=== PATIENT | male | born 1955 | race Caucasian/White ===

== ENCOUNTER 2020-08-03 06:33 | Day surgery (SDC) | payer OTHER ==
[~2020-08-03] VITALS: Ht 180.3 cm; Wt 88.5 kg
[~2020-08-03 06:33] MED LIST: CEPHALEXIN500 MG PO; LOSARTAN POTASS50 MG PO; NAPROXEN500 MG PO
[2020-08-03 08:04] VITALS: BP 137/83
--- NOTE | 2020-08-03 08:45 | EKG ---
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
--- NOTE | 2020-08-07 06:14 | O ---
[facility] [place] [address] [place] [address] OPERATIVE REPORT Name: AIDEN SILVA Room #: DEP [facility]#: [id number] Admission: 08/03/20 Attend Phys: Pedro Beard MD Discharge: 08/03/20 Date of : 53 Report #: [id number] THIS REPORT FOR: cc: Rocky Wayne MD, Richard K. MD White, William L. MD ~ DOC #: [id number] cc: Rocky Wayne MD, Melvin Beard MD DATE OF SERVICE: 08/03/2020 PREOPERATIVE DIAGNOSIS: Basal cell carcinoma, left lower lid and cheek, status post Mohs resection. POSTOPERATIVE DIAGNOSIS: Basal cell carcinoma, left lower lid and cheek, status post Mohs resection. PROCEDURE: Vascularized tarsoconjunctival flap from left upper lid to the left lower lid with full thickness skin graft from right upper lid to left lower lid, myocutaneous advancement flap repair of defect of left lower lid and cheek. SURGEON: Pedro Beard MD GUEST SERVICES COORDINATOR: None. ANESTHESIA: General. COMPLICATIONS: None. INDICATIONS FOR SURGERY: This pleasant 64-year-old gentleman underwent Mohs resection of a basal cell carcinoma, 4 days ago. The size of the defect after his resection was larger than what it had been initially anticipated, so the original reconstruction was canceled and I was asked to see him to correct that defect. The defect includes the central half of his left lower lid in its entirety, but then extends across the anterior lamellar and the lamella in an angular fashion including the skin of the cheek and the lid past the lateral canthus towards the ear. He presents today for correction of that defect with three different reconstructive techniques to be used. A Martins flap will be used to correct the central defect in the left lower lid followed by a full thickness skin graft from the opposite side upper lid. The anterior lamellar defect that extends back out further on to the cheek is to be corrected with a myocutaneous advancement flap. Informed consent was obtained to include but not limited to the potential risk for loss of vision, bleeding, infection, failure to improve the problem, and the potential need for further surgery or treatment. [address] [address] OPERATIVE REPORT Name: AIDEN SILVA Room #: DEP [facility].#: [id number] Admission: 08/03/20 Attend Phys: Pedro Beard MD Discharge: 08/03/20 Date of : 53 Report #: [id number] DESCRIPTION OF PROCEDURE: The patient was taken to the operating room where general anesthesia was administered. The left lower lid, the left cheek the left lateral canthus, the left upper lid and the right upper lid were then anesthetized with Xylocaine with epinephrine mixed with Marcaine and Wydase. The patient was subsequently prepped and draped in the usual sterile fashion. An incision was then made across the stump of the medial canthus through the lower lid retractors to the premalar space. An additional vertical incision was made laterally to allow fresh perpendicular tarsal plate margins. These 2 incisions were then connected horizontally. This specimen was marked with a Vicryl suture medially and sent for permanent section analysis. The left upper lid was then everted and an incision made, 3.5 mm away from the mature lashes across the width of the lid. Vertical incisions were then made to allow a vascularized tarsoconjunctival flap to be developed. Thin section techniques were used to bring just the flap with the conjunctiva. Ralph's muscle was from the underlying conjunctiva and left with the lid. This vascularized tarsoconjunctival flap was then squared and secured to its bed in the lower lid with 6-0 Vicryl sutures. A fine tip skin marking pen was then utilized to outline an upper lid crease incision on the right side. A Graefe forceps was then used to quantitate the amount of redundant upper lid skin could be excised and still allow his eyes closed. Incisions were then made with a Jodi scissor and a full thickness skin graft harvested then with high temp cautery utilizing thin section techniques. The donor bed was then sculpted with monopolar cautery and closed with interrupted 6-0 chromic sutures to recreate the lid crease followed by skin closure with 6-0 plain gut sutures. The full thickness skin graft was then defatted and secured into its bed in the left lower lid with cardinal bites of 7-0 Vicryl suture followed by final skin closure of 6-0 plain gut sutures. A subciliary incision was then made laterally out past the lateral canthus up into the infratemporal fossa and to correct the defect still left in the lateral most left lower lid extending onto the cheek. The area was widely undermined to allow myocutaneous flap to be advanced. It was then secured to its new bed nasally with buried Vicryl sutures deep and then 7-0 Vicryl sutures on the eyelid margin followed by a final skin closure of 6-0 plain gut suture. The defect having been repaired, the wounds were then cleaned and dressed with erythromycin ophthalmic ointment. Multiple layers of Telfa were then placed over the full thickness skin graft to keep it flat as a bolster. Two eye pads were then placed on the left eye followed by silk tape and this was held in place with Mastisol. The right upper lid had a Telfa pad placed on it in a loose fashion. The patient was subsequently transported to the recovery area, having tolerated the procedures well with no anesthetic or operative [address] [address] OPERATIVE REPORT Name: AIDEN SILVA Room #: DEP [facility].#: [id number] Admission: 08/03/20 Attend Phys: Pedro Beard MD Discharge: 08/03/20 Date of : 53 Report #: [id number] complications being noted. Pedro Beard MD [facility] <ELECTRONICALLY SIGNED> By: Pedro Beard MD 08/07/20 0614 0916 1136 Pedro Beard MD /nt
--- NOTE | 2020-08-07 17:06 | PATH ---
[facility] [place] [address] PATHOLOGY RPT PROCEDURE Name: ANANTH MAHER Room #: DEP [facility] M.R.#: [id number] Admission: 08/03/20 Date of : 53 Discharge: 08/03/20 Report #: [id number] Path Case #: [id number] [facility] Accession Number: [id number] . 01 Material submitted: . eyelid - LEFT LOWER LID. Modifiers: left, lower . 01 Clinical history: . FLAP RECONSTRUCTION BCCA SUTURE MCCOLLUM MEDIAL LEFT LOWER LID DS 08/03 BASAL CELL CARCINOMA SKIN/LEFT LOWER EYELID . 02 Diagnosis: Skin, left lower lid, excision: - Marked acute inflammation associated with abscess formation within dermis. - No residual malignancy present, history of basal cell carcinoma provided. - Overlying skin with marked acute inflammation and reactive changes. ([facility]; 08/07/2020) QMS 08/07/2020 1339 Local . 02 Electronically signed: . Promise Nunez MD, Pathologist NPI- [id number] . 01 Gross description: . Received in formalin labeled "Ananth Maher, left lower lid suture mccollum medial left lower lid" is an oriented ellipse of skin measuring 1.8 x 0.6 x 0.5 cm. There is a suture designating medial left lower lid which is in the 12 o'clock position. The skin surface displays a cano-brown possible lesion measuring 0.9 x 0.3 cm and is located: 0.5 cm from 12:00 0.2 cm from 3:00 0.1 cm from 6:00 0.3 cm from 9:00. The margins are inked as follows: 12:00 to 3:00-yellow, 3:00 to 6:00-blue, 6:00 to 12:00-black. The specimen is sectioned into 6 pieces. The specimen is submitted entirely in A1-A2, with the tips in the last cassette. ([facility]; 08/04/2020) GZA/GZA 08/04/2020 1103 Local . 02 Pathologist provided ICD-10: L98.9, H00.035 . 02 CPT . 910298 [place] [address] PATHOLOGY RPT PROCEDURE Name: ANANTH MAHER Room #: DEP [facility] Mery.[facility]#: [id number] Admission: 08/03/20 Date of : 53 Discharge: 08/03/20 Report #: [id number] Path Case #: [id number] Specimen Comment: A courtesy copy of this report has been sent to [phone], [phone]- Specimen Comment: [phone] Specimen Comment: Report sent to / DR MACHUCA Performed at: [address], [place] [id number] MD Clive Cordova MD Phone: [phone] Performed at: [address] [id number] MD Promise Nunez MD Phone: [phone]
== END 2020-08-03 11:00 | disposition home or self-care (01) ==
LOC: OR 06:33 → TBA 06:33 → OR 11:00
PROVIDERS: ATTEND Ophthalmology
DX: H02.89 Other specified disorders of eyelid (principal); H00.035 Abscess of left lower eyelid; I10 Essential (primary) hypertension; Z85.828 Personal history of other malignant neoplasm of skin; Z98.890 Other specified postprocedural states; Z79.899 Other long term (current) drug therapy; Z90.49 Acquired absence of other specified parts of digestive tract
CPT/HCPCS: 50010; 50101; 50386; 50398; 51636; 56528; 56531; 62110; 62850; 64037; 70005

== ENCOUNTER 2020-09-14 06:17 | Day surgery (SDC) | payer OTHER ==
[~2020-09-14] VITALS: Ht 177.8 cm; Wt 86.2 kg
--- NOTE | ~2020-09-14 | O ---
[facility] [place] [address] OPERATIVE REPORT Name: AIDEN SILVA Room #: 150-2 [facility].#: [id number] Admission: 09/14/20 Attend Phys: Pedro Beard MD Discharge: Date of : 53 Report #: [id number] THIS REPORT FOR: cc: Rocky Wayne MD, Richard K. MD White, William L. MD ~ DOC #: [id number] Pedro Beard MD DATE OF SERVICE: 09/14/2020 PREOPERATIVE DIAGNOSIS: Basal cell carcinoma of the left lower lid. POSTOPERATIVE DIAGNOSIS: Basal cell carcinoma of the left lower lid. PROCEDURE: Second stage Martins reconstruction, left lower lid. SURGEON: Pedro Beard MD ANESTHESIA: General. COMPLICATIONS: None. INDICATIONS FOR SURGERY: This pleasant 64-year-old gentleman had a basal cell carcinoma resected from his left lower lid on August 03 of this year. He presents today for a planned second stage Martins reconstruction of that lid. Informed consent was obtained to include but not limited to the potential risk for loss of vision, bleeding, infection, failure to improve the problem, and the potential need for further surgery or treatment. DESCRIPTION OF PROCEDURE: The patient was taken to the operating room where general anesthesia was administered. The left lower lid and the left upper lid were then generously infiltrated with Xylocaine with epinephrine mixed with Marcaine and Wydase transconjunctivally and transcutaneously. The patient was then fully prepped and draped in the usual sterile fashion. A groove director was then passed behind the pedicle from the upper lid to the lower lid and was subsequently with a high temperature cautery. The flap was quite tight. The left lower lid was then smoothed with the Jodi scissor and the conjunctival surface draped over the lid margin in a standard fashion. The left upper lid was then everted and that was similarly smoothed and excised back to the superior border of the new tarsal plate. The tarsal plate between the lashes, in the area where the flap had been taken, appeared to be moderately avascular, which is atypical in this scenario. That being said, nothing was done, it was just observed. Erythromycin ointment was then placed on the eye. The patient was subsequently transported to the recovery area having tolerated the procedure well with no anesthetic or operative complications being noted. [address] [address] OPERATIVE REPORT Name: AIDEN SILVA Room #: 150-2 [facility]..#: [id number] Admission: 09/14/20 Attend Phys: Pedro Beard MD Discharge: Date of : 53 Report #: [id number] Pedro Beard MD [facility] By: 0632 0642 Pedro Beard MD /nt
[2020-09-14 09:58] VITALS: BP 149/79
== END 2020-09-14 08:15 | disposition home or self-care (01) ==
LOC: OR 06:17 → TBA 06:18 → OR 08:15
PROVIDERS: ATTEND Ophthalmology
DX: C44.1192 Basal cell carcinoma of skin of left lower eyelid, including canthus (principal); I10 Essential (primary) hypertension; Z85.828 Personal history of other malignant neoplasm of skin; Z85.820 Personal history of malignant melanoma of skin; Z98.890 Other specified postprocedural states; Z79.899 Other long term (current) drug therapy; Z90.49 Acquired absence of other specified parts of digestive tract
CPT/HCPCS: 50010; 50101; 50386; 50398; 51636; 62110; 62900; 64037; 70005